=== PATIENT | male | born 1995 | race Caucasian/White ===

== ENCOUNTER 2019-07-20 18:35 | Emergency (ER) | payer BC, OTHER ==
[2019-07-20 18:48] VITALS: BP 122/77
--- NOTE | 2019-07-20 18:57 | ER Document Report ---
HPI - HPI Time Seen by Provider: 07/20/19 18:52 Pain Level: 2 Notes: Patient is a 24-year-old male no significant past medical history who does not wear contact lenses who presents complaining of right eye redness, irritation, purulent discharge, matting over the past 1 to 2 days. Patient states that he is starting to feel some irritation of his left eye. He does not work around any small particles that could have gotten into his eye. He does not have any foreign body sensation or changes in vision otherwise. Denies drug allergies. Patient states that he has had conjunctivitis before and this feels similar. Denies any headache, fever, neck pain, changes in vision/speech/mentation/hearing, URI, sore throat, chest pain, palpitations, syncope, cough, shortness of breath, wheeze, dyspnea, abdominal pain, nausea/vomiting/diarrhea, urinary retention, dysuria, hematuria, or rash. - ROS Systems Reviewed and Negative: Yes All other systems reviewed and negative - EENT EENT: REPORTS: Eye problems - REPRODUCTIVE Reproductive: DENIES: : Past Medical History - Social History Smoking Status: Never Smoker Chew tobacco use (# tins/day): No Frequency of alcohol use: None Drug Abuse: None Family History: Reviewed & Not Pertinent Patient has suicidal ideation: No Patient has homicidal ideation: No - Past Medical History Cardiac Medical History: Denies: Hx Heart Attack, Hx Hypertension Pulmonary Medical History: Denies: Hx Asthma Neurological Medical History: Denies: Hx Cerebrovascular Accident, Hx Seizures GI Medical History: Denies: Hx Hepatitis, Hx Hiatal Hernia, Hx Ulcer Infectious Medical History: Denies: Hx Hepatitis Past Surgical History: Denies: Hx Open Heart Surgery, Hx Pacemaker Vertical Provider Document - CONSTITUTIONAL Agree With Documented VS: Yes Notes: PHYSICAL EXAMINATION: GENERAL: Well-appearing, well-nourished and in no acute distress. A&Ox4 HEAD: Atraumatic, normocephalic. EYES: Pupils equal round and reactive to light, extraocular movements intact, sclera anicteric, conjunctiva Rt is injected with scant purulence and matting noted. Non-tender to palp of the globe and eye itself. No surrounding erythema or swelling noted. Visual acuity intact 20/20. ENT: EAC clear b/l. TM's intact b/l without erythema, fluid, or perforation. Nares patent and without discharge. oropharynx clear without exudates. No tonsilar hypertrophy or erythema. Moist mucous membranes. No sinus tenderness. Uvula midline. No palatine shift. No airway compromise. No drooling or hoarseness. NECK: Normal range of motion, supple without lymphadenopathy. No rigidity/meningismus. LUNGS: Breath sounds clear to auscultation bilaterally and equal. No wheezes rales or rhonchi. HEART: Regular rate and rhythm without murmurs, rubs, gallops. Extremities: No cyanosis, clubbing, or edema b/l. Peripheral pulses 2+. Capillary refill less than 3 seconds. NEUROLOGICAL: Cranial nerves grossly intact. Normal speech, normal gait. Normal sensory, motor exams PSYCH: Normal mood, normal affect. SKIN: Warm, Dry, normal turgor, no rashes or lesions noted. Course - Re-evaluation Re-evalutation: 07/20/19 19:01 Patient is an afebrile, well-hydrated, 24-year-old male who presents to the emergency department with conjunctivitis to the rt eye. Vitals are acceptable without significant tachycardia, tachypnea, or hypoxia. PE is otherwise unremarkable. Patient is nontoxic-appearing and is able to tolerate p.o. without difficulty. No labs or imaging warranted. Low suspicion for any retained corneal or lid foreign body, deep space infection including orbital cellulitis/abscess, acute glaucoma, penetrating globe injury, retinal detachment, meningitis, sepsis, fracture, compartment syndrome. I will send home with a prescription for Polytrim to use as directed. Conservative measures otherwise for symptoms with proper handwashing. Recheck with your PCM in 3-5 days. Consider follow-up with ophthalmology. Return to the ED with any worsening/concerning symptoms otherwise as reviewed in discharge. Patient is in agreement. - Vital Signs Vital signs: Temp Pulse Resp BP Pulse Ox 97.9 F 80 16 122/77 95 07/20/19 18:47 07/20/19 18:47 07/20/19 18:47 07/20/19 18:47 07/20/19 18:47 Discharge - Discharge Clinical Impression: Conjunctivitis, right eye Qualifiers: Conjunctivitis type: unspecified Qualified Code(s): H10.9 - Unspecified conjunctivitis Condition: Stable Disposition: HOME, SELF-CARE Instructions: Conjunctivitis ([facility]) Additional Instructions: Keep eyes clean Avoid scratching/touching eyes Wash hands regularly Use eye drops as directed Maintain adequate fluid intake tylenol/ibuprofen as needed over the counter cold medication as needed for symptoms F/u: with your PCM in 2-3 days for a recheck Consider consult with Ophthalmology for ongoing/worsening symptoms Return to the ED with any worsening symptoms and/or development of fever, headache, changes in vision, eye pain, worsening eye redness, redness around the eyes, purulent discharge, sore throat, facial swelling, neck pain/stiffness, chest pain, palpitations, syncope, shortness of breath, trouble breathing, abdominal pain, n/v/d, blood in stool/urine, dysuria, or other worsening symptoms that are concerning to you. Prescriptions: Polymyxin B Sulf/Trimethoprim [Polytrim Eye Drops] 1 drop OD Q3H #10 ml Referrals: TAYA ESCOBAR NP [Primary Care Provider] - Follow up as needed LUIS CORTES MD [ACTIVE STAFF] - Follow up as needed
== END 2019-07-20 19:15 | disposition home or self-care (01) ==
LOC: ER 18:35
DX: H10.9 Unspecified conjunctivitis (principal)
CPT/HCPCS: 99283